=== PATIENT | male | born 1995 | race Caucasian/White ===

== ENCOUNTER 2017-01-26 14:58 | Emergency (ER) | payer OTHER ==
[~2017-01-26] VITALS: Ht 175.3 cm; Wt 67.5 kg
[~2017-01-26 14:58] MED LIST: HYDR-902 PO; IBUP-1542 PO
[2017-01-26 15:01] VITALS: Ht 175.3 cm; Wt 67.5 kg
[2017-01-26] MEDS ORDERED: IBUPROFEN 600 MG TAB PO ONE (17:30)
--- NOTE | 2017-01-26 17:32 | ERD ---
ER Documentation Chief Complaint Chief Complaint lt ankle pain /swelling from basketball injury yesterday HPI 21-year-old male comes in with an inversion injury from playing basketball yesterday and is complaining of left lateral ankle pain. Patient describes achy pain is diffuse in the left lateral ankle, worse with weightbearing better at rest. There is no radiation of pain. He has not tried anything for his pain yet. ROS All systems reviewed and are negative except as per history of present illness. Medications Home Meds Active Scripts Ibuprofen* (Motrin*) 600 Mg Tab, 600 MG PO Q6, #30 TAB Prov:CELESTE CRUZ PA-C 01/26/17 Ibuprofen* (Motrin*) 600 Mg Tab, 600 MG PO Q6, #30 TAB Prov:SHELLI BEARD PA-C 03/25/16 Hydrocodone/Acetaminophen ([place] 10-325 Tablet) 1 Each Tablet, 1 EACH PO Q6, # 12 TAB Prov:SHELLI BEARD PA-C 03/25/16 Ibuprofen* (Motrin*) 600 Mg Tab, 600 MG PO Q6, #20 TAB Prov:CELESTE CRUZ PA-C 01/15/15 Allergies Allergies: Coded Allergies: No Known Allergy (Unverified , 01/15/15) PMhx/Soc History of Surgery: No Anesthesia Reaction: No Hx Neurological Disorder: No Hx Respiratory Disorders: No Hx Cardiac Disorders: No Hx Psychiatric Problems: No Hx Alcohol Use: Yes Hx Substance Use: No Hx Tobacco Use: Yes Physical Exam Vitals Vital Signs Date Time Temp Pulse Resp B/P Pulse Ox O2 Delivery O2 Flow Rate FiO2 01/26/17 15:01 98.2 62 18 130/75 98 Physical Exam General: Well-developed, well-nourished. The patient appears in no acute distress. HEENT: Head is normocephalic, atraumatic. No scleral icterus. Neck: Supple. Nontender. Lungs: Clear to auscultation. Normal air movement. Heart: Regular rate and rhythm. S1 and S2 are normal. No murmurs, gallops, or rubs. Abdomen: Nondistended. Extremities: Left lateral ankle soft tissue swelling just below the lateral malleolus, no bony deformities. Patient is full range of motion with ankle flexion and dorsiflexion, pulses 2+ bilaterally, Achilles is intact. Foot is nontraumatic, nontender to palpation. Neurologic: Alert and oriented 3. No focal deficits. Normal speech and gait. Skin: Normal turgor. No rash or lesions. Results 24 hrs Current Medications Medications (Trade) Dose Ordered Sig/Anthony Route PRN Reason Start Time Stop Time Status Last Admin Dose Admin Ibuprofen (Motrin) 600 mg ONCE ONCE PO 01/26/17 17:30 01/26/17 17:31 DC 01/26/17 17:58 DIAGNOSTIC IMAGING REPORT Patient: SHIRLEY PORRAS : 1995 Age: 21 Sex: M MR #: [id number] DOS: 01/26/17 1718 Ordering MD: CELESTE CRUZ PA-C Location: [facility] Room/Bed: PROCEDURE: XR Left Ankle. CLINICAL INDICATION: Left ankle pain. TECHNIQUE: 3 views. Frontal, lateral, and oblique. COMPARISON: None. FINDINGS: There is no fracture or dislocation. There is lateral soft tissue swelling. Articular surfaces are intact. There is no lytic or blastic lesion. There is no radiopaque foreign body. IMPRESSION: 1. Lateral soft tissue swelling. 2. Otherwise normal images of the left ankle. RPTAT: QQ .Elmo Watson MD, MD Date Time Electronically viewed and signed by .Elmo Watson MD, MD on 01/26/2017 17:58 .R/ CC: CELESTE CRUZ PA-C Procedures/MDM ED COURSE: Patient's left ankle was wrapped in an ALEJANDRO wrap, Splint Assessment: Neurovascularly intact post splint placement with good fit. MDM: 21-year-old male comes in with a left lateral ankle injury, from an inversion injury while playing basketball yesterday. Patient shows evidence of an ankle sprain, no evidence of underlying fracture, dislocation, tendon rupture , neurovascular injury. Departure Diagnosis: Primary Impression: Left ankle sprain Condition: Good CELESTE CRUZ PA-C Jan 26, 2017 17:32
--- NOTE | 2017-01-26 17:59 | RADRPT ---
PROCEDURE: XR Left Ankle. CLINICAL INDICATION: Left ankle pain. TECHNIQUE: 3 views. Frontal, lateral, and oblique. COMPARISON: None. FINDINGS: There is no fracture or dislocation. There is lateral soft tissue swelling. Articular surfaces are intact. There is no lytic or blastic lesion. There is no radiopaque foreign body. IMPRESSION: 1. Lateral soft tissue swelling. 2. Otherwise normal images of the left ankle. RPTAT: QQ .Elmo Watson MD, MD Date Time Electronically viewed and signed by .Elmo Watson MD, MD on 01/26/2017 17:58 .R/
[2017-01-26] MEDS ORDERED: IBUP-1542 PO (18:22)
== END 2017-01-26 18:45 | disposition home or self-care (01) ==
LOC: FTE 14:58
DX: S93.402A Sprain of unspecified ligament of left ankle, initial encounter (principal); X50.9XXA Other and unspecified overexertion or strenuous movements or postures, initial encounter; Y92.9 Unspecified place or not applicable; Z87.891 Personal history of nicotine dependence
CPT/HCPCS: 73610; Z7502; Z7610

== ENCOUNTER 2017-05-12 20:55 | Emergency (ER) | END 2017-05-13 08:53 | disposition home or self-care (01) ==